=== PATIENT | female | born 1990 | race Caucasian/White ===

== ENCOUNTER 2016-09-29 13:54 | Emergency (ER) | payer OTHER | END 2016-09-29 16:05 | disposition home or self-care (01) | LOC: ER 13:54 | DX: J06.9 Acute upper respiratory infection, unspecified (principal); R05 Cough; R50.9 Fever, unspecified; R11.0 Nausea; Z98.51 Tubal ligation status; Z79.3 Long term (current) use of hormonal contraceptives; Z79.899 Other long term (current) drug therapy | CPT/HCPCS: 87400; 99283 ==

== ENCOUNTER 2017-03-26 09:34 | Emergency (ER) | payer OTHER ==
[2017-03-26 10:04] LABS: BASO % 0.4 % (0.1-1.2); EOS # 0.3 10_X3_uL (0.0-0.4); EOS % 3.3 % (0.7-5.8); GRAN # 4.5 10_X3_uL (1.6-6.1); GRAN % 59.9 % (34.0-71.1); HEMATOCRIT 37.4 % (34-45); HEMOGLOBIN 12.4 g/dL (11.2-15.7); LYMPH # 2.1 10_X3_uL (1.2-3.7); MEAN CORPUSCULAR HGB CONC 33.2 g/dL (32.0-36.0); MEAN CORPUSCULAR VOLUME 90.3 fL (79-95); MEAN PLATELET VOLUME 10.5 fl (7.5-11.5); MONO # 0.6 10_X3_uL (0.2-0.9); MONO % 8.4 % (4.7-12.5); PLATELET COUNT 357 x10_3/uL (182-369); RED BLOOD COUNT 4.14 x10_6/uL (3.9-5.2); RED CELL DISTRIBUTION WIDTH 13.2 % (11.7-14.4); WHITE BLOOD COUNT 7.5 x10_3/uL (4.0-10.0)
[2017-03-26 10:16] LABS: BLOOD UREA NITROGEN 9 mg/dL (7-18); CALCIUM 9.1 mg/dL (8.7-10.7); CARBON DIOXIDE 24 mmol/L (21-32); CREATININE 0.6 mg/dL (0.6-1.3); GLUCOSE,RANDOM 93 mg/dL (70-99); POTASSIUM 4.1 mmol/L (3.5-5.1); SODIUM 138 mmol/L (136-145)
== END 2017-03-26 12:35 | disposition home or self-care (01) ==
LOC: ER 09:34
PROVIDERS: Internal Medicine
DX: N92.0 Excessive and frequent menstruation with regular cycle (principal); R10.30 Lower abdominal pain, unspecified; Z98.51 Tubal ligation status; Z79.3 Long term (current) use of hormonal contraceptives
CPT/HCPCS: 36415; 76856; 80048; 84703; 85025; 96372; 99284-25